=== PATIENT | male | born 1970 | race Caucasian/White ===

== ENCOUNTER 2016-08-16 07:19 | Emergency (ER) | payer BC ==
[2016-08-16] MEDS ORDERED: SULFAMETHOXAZOLE/TRIMETHOPRIM 800-160 MG TABLET PO ONE (07:58)
--- NOTE | 2016-08-16 08:02 | ER Document Report ---
ED General - General Chief Complaint: Abscess Stated Complaint: POSSIBLE SPIDER BITE TRAVEL OUTSIDE OF THE [place] IN LAST 30 DAYS: No - HPI Patient complains to provider of: Chin abscess Notes: Patient coming in with a abscess on his chin states he noticed erythema possible infected hair proximal one week ago however does increase in size made the patient coming to the ER today for further evaluation. Patient denies any trouble swallowing has any fevers chills nausea vomiting. - Related Data Allergies/Adverse Reactions: Animal Dander Allergy (Severe, Uncoded 08/16/16 07:59) Sinus problems, SOB Environmental Allergy (Severe, Uncoded 08/16/16 07:59) SOB, Sinus problems Past Medical History - Social History Smoking Status: Never Smoker Frequency of alcohol use: None Drug Abuse: None Family History: Reviewed & Not Pertinent Patient has suicidal ideation: No Patient has homicidal ideation: No - Past Medical History Cardiac Medical History: Reports: Hx Hypertension - MEDICATED Denies: Hx Coronary Artery Disease, Hx Heart Attack Pulmonary Medical History: Denies: Hx Asthma, Hx Bronchitis, Hx COPD, Hx Pneumonia Neurological Medical History: Denies: Hx Cerebrovascular Accident, Hx Seizures GI Medical History: Denies: Hx Hepatitis, Hx Hiatal Hernia, Hx Ulcer Musculoskeltal Medical History: Reports Hx Arthritis - on meds,burstis Psychiatric Medical History: Reports: Hx Bipolar Disorder, Hx Depression, Hx Schizophrenia Infectious Medical History: Denies: Hx Hepatitis Past Surgical History: Reports: Hx Orthopedic Surgery - Carpal tunnel. Denies: Hx Open Heart Surgery, Hx Pacemaker - Immunizations Immunizations up to date: Yes Hx Diphtheria, Pertussis, Tetanus Vaccination: Yes Review of Systems - Review of Systems Constitutional: No symptoms reported EENT: Other - Chin abscess Cardiovascular: No symptoms reported Respiratory: No symptoms reported Gastrointestinal: No symptoms reported Genitourinary: No symptoms reported Male Genitourinary: No symptoms reported Musculoskeletal: No symptoms reported Skin: No symptoms reported Hematologic/Lymphatic: No symptoms reported Neurological/Psychological: No symptoms reported Physical Exam - Vital signs Vitals: Temp Pulse Resp BP Pulse Ox 98.0 F 93 20 120/83 100 08/16/16 07:26 08/16/16 07:26 08/16/16 07:26 08/16/16 07:26 08/16/16 07:26 Interpretation: Normal - General General appearance: Appears well, Alert - HEENT Head: Normocephalic, Atraumatic, Other - Patient has a goatee with an area of erythema on his chin approximately 2 cm with 2 cm with a center area of fluctuance consistent with abscess formation. There is no changes underneath the chin no signs of lugwings no signs of severe infection no signs Eyes: Normal Pupils: PERRL Neck: Normal - Respiratory Respiratory status: No respiratory distress Chest status: Nontender Breath sounds: Normal Chest palpation: Normal - Cardiovascular Rhythm: Regular Heart sounds: Normal auscultation Murmur: No - Abdominal Inspection: Normal Distension: No distension Bowel sounds: Normal Tenderness: Nontender Organomegaly: No organomegaly - Back Back: Normal, Nontender - Extremities General upper extremity: Normal inspection, Nontender, Normal color, Normal ROM , Normal temperature General lower extremity: Normal inspection, Nontender, Normal color, Normal ROM , Normal temperature, Normal weight bearing. No: Lauren's sign - Neurological Neuro grossly intact: Yes Cognition: Normal Orientation: AAOx4 Verónica Coma Scale Eye Opening: Spontaneous Verónica Coma Scale Verbal: Oriented Verónica Coma Scale Motor: Obeys Commands Verónica Coma Scale Total: 15 Speech: Normal Motor strength normal: LUE, RUE, LLE, RLE Sensory: Normal - Psychological Associated symptoms: Normal affect, Normal mood - Skin Skin Temperature: Warm Skin Moisture: Dry Skin Color: Normal Course - Re-evaluation Re-evalutation: 08/16/16 15:45 I and D performed patient tolerated well is discharged home antibiotics follow- up with PCP. - Vital Signs Vital signs: Temp Pulse Resp BP Pulse Ox 98.3 F 92 16 125/82 96 08/16/16 08:26 08/16/16 08:26 08/16/16 08:26 08/16/16 08:26 08/16/16 08:26 Procedures - Incision and Drainage Face Type: Simple Anesthetic type: 1% Lidocaine mL's of anesthetic: 1 Blade size: 11 I&D procedure: Betadine prep applied Incision Method: Incision made by scalpel Amount/type of drainage: 2 cc puss Notes: 08/16/16 15:45 Probed for loculations irrigated to clear Discharge - Discharge Clinical Impression: Cutaneous abscess of face Condition: Good Disposition: HOME, SELF-CARE Instructions: Post Incision and Drainage, Trimethoprim-Sulfa ([facility]), Abscess ( [facility]) Additional Instructions: Take medication as prescribed. Return to the ER symptoms worsen. Prescriptions: Sulfamethoxazole/Trimethoprim [Bactrim Ds Tablet] 1 each PO BID #20 tablet Forms: Return to Work
[2016-08-16 08:28] VITALS: BP 125/82
== END 2016-08-16 08:26 | disposition home or self-care (01) ==
LOC: ER 07:19
PROC: 0H91XZZ Drainage of Face Skin, External Approach (ICD-10-PCS; principal; 2016-08-16)
DX: L02.01 Cutaneous abscess of face (principal); I10 Essential (primary) hypertension
CPT/HCPCS: 87070; 87077; 87186; 87205; 99283

== ENCOUNTER 2017-09-22 10:47 | Inpatient (IN) | payer BC ==
[2017-09-22] MEDS: NORMAL SALINE 1000 ML 1,000 ML IV PRN ×2 (11:14→11:39)
[2017-09-22 11:20] LABS: ABSOLUTE BASOPHILS # (AUTO) 0.1 10^3/uL (0.0-0.2); ABSOLUTE EOSINOPHILS # (AUTO) 0.3 10^3/uL (0.0-0.6); ABSOLUTE NEUT (AUTO) 9.2 10^3/uL (1.7-8.2); BASOPHILS % (AUTO) 0.6 % (0-2); EOSINOPHILS % (AUTO) 2.5 % (0-6); HEMATOCRIT 38.7 % (37.9-51.0); HEMOGLOBIN 13.4 g/dL (13.5-17.0); LYMPHOCYTES % (AUTO) 16.2 % (13-45); MEAN CORPUSCULAR HGB CONC 34.6 g/dL (32.0-36.0); MEAN CORPUSCULAR VOLUME 95 fl (80-97); MONOCYTES % (AUTO) 7.6 % (3-13); PLATELET COUNT 245 10^3/uL (150-450); RED BLOOD COUNT 4.06 10^6/uL (4.35-5.55); SEGMENTED NEUTROPHILS % (AUTO) 73.1 % (42-78); TOTAL CELLS COUNTED % (AUTO) 100 %; WHITE BLOOD COUNT 12.6 10^3/uL (4.0-10.5)
--- NOTE | 2017-09-22 11:21 | ER Document Report ---
ED General - General Chief Complaint: Altered Mental Status Stated Complaint: ALTERED MENTAL STATUS Time Seen by Provider: 09/22/17 10:52 Notes: Patient was found laying on the garage floor by his family members this morning. They called EMS. Patient was noted to be altered and not able to answer all questions correctly. His blood pressure was 90/60. Patient does not know why he was in the garage for what he was doing this morning. He is disoriented to date or year, although he knows he is at [facility]. Patient does not show any evidence of any injuries. Denies any pains. His medication list shows several medications for anxiety and depression and he says he also has bipolar disorder and schizophrenia. Patient says he controls his medications. told EMS that patient recently had a change in his gabapentin medication and ever since then he has had a random twitching and been less active. Patient says he has had occasional chest pains. No difficulty breathing or shortness of breath. Denies UTI symptoms. Denies nausea or vomiting or diarrhea. Has not recently had any illnesses and fevers. Current psychiatric medications include Risperdal, Topamax, lithium 600 mg twice a day, and gabapentin 1200 mg 3 times a day. TRAVEL OUTSIDE OF THE [place] IN LAST 30 DAYS: No - Related Data Allergies/Adverse Reactions: Animal Dander Allergy (Severe, Uncoded 08/16/16 07:59) Sinus problems, SOB Environmental Allergy (Severe, Uncoded 08/16/16 07:59) SOB, Sinus problems Past Medical History - Social History Smoking Status: Unknown if Ever Smoked Cigarette use (# per day): No Family History: Reviewed & Not Pertinent - Past Medical History Cardiac Medical History: Reports: Hx Hypertension - MEDICATED Neurological Medical History: Denies: Hx Cerebrovascular Accident, Hx Seizures Endocrine Medical History: Denies: Hx Diabetes Mellitus Type 1, Hx Diabetes Mellitus Type 2 GI Medical History: Reports: Hx Gastroesophageal Reflux Disease Musculoskeltal Medical History: Reports Hx Arthritis - on meds,burstis Psychiatric Medical History: Reports: Hx Bipolar Disorder, Hx Depression, Hx Schizophrenia Past Surgical History: Reports: Hx Orthopedic Surgery - Carpal tunnel - Immunizations Immunizations up to date: Yes Hx Diphtheria, Pertussis, Tetanus Vaccination: Yes Review of Systems - Review of Systems Notes: REVIEW OF SYSTEMS: CONSTITUTIONAL : Denies fever. EENT: Denies eye, ear, nose or mouth or throat pain or other symptoms. CARDIOVASCULAR: Has had some chest pains recently, but not today. RESPIRATORY: Denies cough, chest congestion, or shortness of breath. GASTROINTESTINAL: Denies abdominal pain or nausea, vomiting, or diarrhea. GENITOURINARY: Denies difficulty or painful urinating, urinary frequency, blood in urine. MUSCULOSKELETAL: Denies back or neck pain. Denies joint pain or swelling. SKIN: Denies rash or skin lesions. NEUROLOGICAL: Denies headache. Denies sensory loss or motor deficits. Does not know what the date is or what year it is, but knows he is at [facility]. ALL OTHER SYSTEMS REVIEWED AND NEGATIVE. Physical Exam - Vital signs Vitals: Resp 22 H 09/22/17 10:51 Interpretation: Hypotensive - 90/60 initially by EMS. - Notes Notes: PHYSICAL EXAMINATION: GENERAL: Well-appearing, in no acute distress. Blood pressure slightly low. Patient seems sleepy but can be awakened with a loud voice or touching. Answers most questions appropriately, although he is not oriented to time and date. No evidence of any trauma. HEAD: Atraumatic, normocephalic. EYES: Pupils equal round and reactive to light, extraocular movements intact. NECK: Normal range of motion, supple. No carotid bruits heard LUNGS: Breath sounds clear and equal bilaterally. HEART: Regular rate and rhythm without murmurs. ABDOMEN: Soft, nontender. No guarding or rebound. No masses. BACK: No tenderness throughout entire back. EXTREMITIES: Normal range of motion without pain. NEUROLOGICAL: Speech is slow, but not slurred. Patient can stand at the bedside by himself and take a few steps and turn around and back to the stretcher without assistance. Normal sensory, motor, and reflex exams. Awake, alert, and oriented x2 (person and place). Patient has a random twitch in which his entire body jerks slightly occurring at 10 to 20 second intervals. PSYCH: Normal mood, normal affect. SKIN: Warm, dry, no rashes. Course - Re-evaluation Re-evalutation: 09/22/17 13:41 Patient has been hydrated with 2 L of saline and is now getting his third liter of saline. Toxic level of lithium noted. Discussed with hospitalist who will be admitting the patient to [facility] for further hydration and cardiac monitoring. 09/22/17 14:55 Patient's drug screen came back and it is positive for cocaine, marijuana, and possible amphetamines. - Vital Signs Vital signs: Temp Pulse Resp BP Pulse Ox 98.4 F 16 101/68 97 09/22/17 10:53 09/22/17 14:31 09/22/17 14:31 09/22/17 14:31 - Laboratory Result Diagrams: 09/22/17 10:20 09/22/17 10:20 Laboratory results interpreted by me: 09/22/17 09/22/17 09/22/17 10:20 10:20 13:30 WBC 12.6 H RBC 4.06 L Hgb 13.4 L Absolute Neutrophils 9.2 H Sodium 135.2 L Potassium 3.4 L Creatinine 1.93 H Est GFR ( Amer) 46 L Est GFR (Non-Af Amer) 38 L Glucose 138 H Direct Bilirubin 0.5 H Ur Leukocyte Esterase SMALL H Salicylates < 1.0 L Acetaminophen < 10 L [place] 2.8 H* - Diagnostic Test Radiology reviewed: Image reviewed, Reports reviewed - CT scan is normal. Radiology results interpreted by me: 09/22/17 13:36 Chest x-ray is normal. - EKG Interpretation by [place] EKG shows normal: Sinus rhythm Rate: Normal Rhythm: NSR [place]/QRS: IVCD When compared to previous EKG there are: Changes noted - Prolonged QT Additional EKG results interpreted by me: 09/22/17 13:39 Patient's QTC is 538. Critical Care Note - Critical Care Note Total time excluding time spent on procedures (mins): 40 Discharge - Discharge Clinical Impression: Altered mental status, [place] toxicity Condition: Stable Disposition: ADMITTED INPATIENT Admitting Provider: Hospitalist Unit Admitted: [facility]
[2017-09-22 11:38] LABS: ACETAMINOPHEN < 10 ug/mL (10-30); ALANINE AMINOTRANSFERASE 70 U/L (21-72); ALBUMIN 4.2 g/dL (3.5-5.0); ALCOHOL < 10 mg/dL (NONE DETECTED); ALKALINE PHOSPHATASE 87 U/L (38-126); ANION GAP 12 (5-19); ASPARTATE AMINO TRANSFERASE 38 U/L (17-59); BILIRUBIN,DIRECT 0.5 mg/dL (0.0-0.4); BILIRUBIN,TOTAL 0.7 mg/dL (0.2-1.3); BLOOD UREA NITROGEN 18 mg/dL (7-20); CALCIUM 9.7 mg/dL (8.4-10.2); CARBON DIOXIDE 23 mmol/L (22-30); CHLORIDE 100 mmol/L (98-107); GLUCOSE 138 mg/dL (75-110); POTASSIUM 3.4 mmol/L (3.6-5.0); SALICYLATE < 1.0 mg/dL (2.0-20.0); SODIUM 135.2 mmol/L (137-145)
--- NOTE | 2017-09-22 11:41 | RADIOLOGY REPORT (SQ) ---
EXAM DESCRIPTION: CT HEAD WITHOUT COMPLETED DATE/TIME: 09/22/2017 11:28 am REASON FOR STUDY: Altered mental status COMPARISON: None. TECHNIQUE: Axial images acquired through the brain without intravenous contrast. Images reviewed wi th bone, brain and subdural windows. Images stored on PACS. All CT scanners at this facility use dose modulation, iterative reconstruction, and/or weight based d osing when appropriate to reduce radiation dose to as low as reasonably achievable (ALARA). [facility]: Dose Right [facility]: CareDose [facility]: Dose Right [facility]: Teradose 4D [facility]: [employer] RADIATION DOSE: CT Rad equipment meets quality standard of care and radiation dose reduction techniq ues were employed. CTDIvol: 64.6 mGy. DLP: 1163 mGy-cm. mGy. LIMITATIONS: None. FINDINGS: VENTRICLES: Normal size and contour. CEREBRUM: No masses. No hemorrhage. No midline shift. No evidence for acute infarction. Normal gra y/white matter differentiation. No areas of low density in the white matter. CEREBELLUM: No masses. No hemorrhage. No alteration of density. No evidence for acute infarction. EXTRAAXIAL SPACES: No fluid collections. No masses. ORBITS AND GLOBE: No intra- or extraconal masses. Normal contour of globe without masses. CALVARIUM: No fracture. PARANASAL SINUSES: No fluid or mucosal thickening. SOFT TISSUES: No mass or hematoma. OTHER: No other significant finding. IMPRESSION: NORMAL BRAIN CT WITHOUT CONTRAST. EVIDENCE OF ACUTE STROKE: NO. COMMENT: Quality ID # [id number]: Final reports with documentation of one or more dose reduction techniques (e.g., Automated exposure control, adjustment of the mA and/or kV according to patient size, use of iterative reconstruction technique) TECHNICAL DOCUMENTATION: JOB ID: [id number] [employer]- All Rights Reserved
[2017-09-22 11:46] LABS: LITHIUM 2.8 mEq/L (0.6-1.2)
--- NOTE | 2017-09-22 12:02 | RADIOLOGY REPORT (SQ) ---
EXAM DESCRIPTION: CHEST PA/LAT COMPLETED DATE/TIME: 09/22/2017 11:44 am REASON FOR STUDY: Altered mental status,? Fall COMPARISON: 05/23/2015. EXAM PARAMETERS: NUMBER OF VIEWS: two views TECHNIQUE: Digital Frontal and Lateral radiographic views of the chest acquired. RADIATION DOSE: NA LIMITATIONS: none FINDINGS: LUNGS AND PLEURA: No opacities, masses or pneumothorax. No pleural effusion. MEDIASTINUM AND HILAR STRUCTURES: No masses or contour abnormalities. HEART AND VASCULAR STRUCTURES: Heart normal size. No evidence for failure. BONES: No acute findings. HARDWARE: None in the chest. OTHER: No other significant finding. IMPRESSION: NO SIGNIFICANT RADIOGRAPHIC FINDING IN THE CHEST. TECHNICAL DOCUMENTATION: JOB ID: [id number] [employer]- All Rights Reserved
--- NOTE | 2017-09-22 12:40 | PSYCHOLOGICAL NOTE ---
Psych Note - Psych Note Psych Note: Reason for consult: Drug Overdose Consents given: Jennifer Valdes, , at bedside Patient brought to the Emergency Department after being found unconscious on garage floor. Patient was not found with empty pill bottles or indications he had taken any medications. Patient and denied the patient had attempted to commit suicide. Toxicology reports showed the patient has a [place] level of 2.8 (normal levels per EMR are identified as 0.6 to 1.2). Patient stated he may have taken too much of his medication or mixed up his medications. Patient denied any additional stressors in his life or any additional depressive episodes. Patient appears lethargic and has a difficult time staying awake during evaluation. Patient's stated he may smoke marijuana occasionally but is not using anything else. Patient denied meth use or use of any drugs besides his prescriptions and marijuana. Patient reported he has memory issues sometimes. Patient's stated he receives ECT treatment at [facility]. Explored patient's taking over dispensation of patient's medications if this is a result of a medication error. The patient's stated she works too many hours to be in charge of all of his medications and the multiple times a day he has to take them. Patient stated he keeps his medications in order but possible messed up his dosage on the [place]. The stated she and her 17 year old daughter who also lives in the home give him reminders to take his medications. Patient is observed to have uncontrollable twitching in his extremities. Physician noted this may be a result of the [place] toxicity. Patient and reported he has multiple diagnoses to include PTSD, Schizophrenia and Bipolar Disorder. Patient takes Marinol, [place] , Risperidone, and Topamax for psychiatric disorders as well as medications for pain, high blood pressure, nerve pain and back pain. Patient was somewhat alert and oriented but had a difficult time staying awake for assessment. Mood was euthymic with congruent affect. Patient denied suicidal /homicidal ideation, intent or plan. He did not appear to be responding to internal stimuli as evidenced by appropriate eye contact, maintaining conversation-when he was able to stay awake-and staying on topic. No delusions or psychosis noted. Thought processes were organized and linear. Conversational speech was slow for rate, tone and prosody subsequent to his physical lethargy. Intellectual abilities were estimated in the average range. Insight, judgment and impulse control were fair. 1. 309.81 (F43.10) Post Traumatic Stress Disorder, by patient report 2. 295.90 (F20.9) Schizophrenia, by patient report 3. 296.80 (F31.9) Unspecified Bipolar and Related Disorder, by patient report Impression/Plan: Patient is psychiatrically clear. He does not meet [place] G.S 122C IVC criteria. Patient denied suicidal/homicidal ideation, intent or plan. He stated that his current presentation is solely due to a medication error and he is not depressed or wanting to harm himself. Patient's corroborates his explanation and has seen no signs of the patient being overtly depressed or suicidal. Consulted with Dr. Bridges regarding the care and management of this patient. ED physician in agreement with recommendation and disposition.
[2017-09-22] MEDS ORDERED: ONDANSETRON HCL INJ/PF 4 MG/2 ML SDV IV PRN (13:45)
[2017-09-22] MEDS ORDERED: ACETAMINOPHEN 325 MG TABLET PO PRN (13:45)
[2017-09-22] MEDS ORDERED: POTASSI CL 20 MEQ/NS 1L 1,000 ML IV PRN ×2 (13:45→18:29)
[2017-09-22 14:03] LABS: APPEARANCE,URINE SLIGHTLY-CLOUDY; BILIRUBIN,URINE NEGATIVE (NEGATIVE); COLOR,URINE YELLOW; GLUCOSE, URINE NEGATIVE (NEGATIVE); KETONES,URINE NEGATIVE (NEGATIVE); LEUKOCYTE ESTERASE,URINE SMALL (NEGATIVE); NITRITE,URINE NEGATIVE (NEGATIVE); PROTEIN,URINE NEGATIVE (NEGATIVE); URINE SPECIFIC GRAVITY 1.015; UROBILINOGEN,URINE NEGATIVE mg/dL (<2.0)
[2017-09-22 14:12] LABS: URINE BARBITURATES SCREEN NEGATIVE; URINE BENZODIAZEPINES SCREEN NEGATIVE; URINE METHADONE SCREEN NEGATIVE; URINE PHENCYCLIDINE SCREEN NEGATIVE
[2017-09-22 14:28] LABS: URINE COCAINE SCREEN UNCONFIRMED POSITIVE; URINE MARIJUANA (THC) SCREEN UNCONFIRMED POSITIVE
[2017-09-22] MEDS: OXYCODONE-ACETAMINOPHEN 5-325 MG TABLET PO PRN (14:30)
[2017-09-22] MEDS: HEPARIN SOD (PORCINE) 5,000 UNIT/ML 1 ML SYRINGE SUBCUT SCH (14:31)
[2017-09-22] MEDS ORDERED: POTASSIUM CHLORIDE 10 MEQ TABLET.SA PO ONE (15:50)
[2017-09-22] MEDS ORDERED: FUROSEMIDE INJ/PF 20 MG/2 ML SDV IV ONE (15:50)
[2017-09-22] MEDS ORDERED: TAMSULOSIN HCL 0.4 MG CAP.SR.24H PO ONE (15:51)
[2017-09-22] MEDS ORDERED: DRONABINOL 10 MG PO SCH ×2 (16:00→18:00)
--- NOTE | 2017-09-22 16:20 | PDOC H&P ---
History of Present Illness Admission Date/PCP: 09/22/17 13:45 CHARLENE DENNY NP Patient complains of: Was found unconscious in the garage History of Present Illness: DEANA SHARP is a 47 year old male was brought to the Emergency Department after being found unconscious on garage floor by his daughter. Patient was not found with empty pill bottles or indications he had taken any medications. Patient and denied the patient had attempted to commit suicide. Patient stated that he thinks that he took more medications than usual primarily lithium. His medications have been recently adjusted by his psychiatrist. Also pain management had been trying to regulate gabapentin. complained of patient having some twitches which she thinks relate to his medications.Toxicology reports showed the patient has a [place] level of 2.8. Patient denied any additional stressors in his life or any additional depressive episodes. Patient's stated he may smoke marijuana occasionally but is not using anything else. Patient denied meth use or use of any drugs besides his prescriptions and marijuana. Patient reported he has memory issues sometimes. Patient's stated he receives ECT treatment at [facility]. Patient and reported he has multiple diagnoses to include PTSD, Schizophrenia and Bipolar Disorder. Patient takes Marinol, [place] , Risperidone, and Topamax for psychiatric disorders as well as medications for pain, high blood pressure, nerve pain and back pain. Due to elevated lithium and mental status changes the hospitalist service was contacted for further management. It is noteworthy to mention that while in emergency room care render included administration of 3 L of normal saline. Poison control has not been contacted since ED physician claimed 40 years of experience and having taking care of similar scenarios in the past. Past Medical History Cardiac Medical History: Reports: Hypertension - MEDICATED EENT Medical History: Reports: None Neurological Medical History: Reports: None Denies: Seizures Endocrine Medical History: Denies: Diabetes Mellitus Type 1, Diabetes Mellitus Type 2 Renal/ Medical History: Reports: None Malignancy Medical History: Reports: None GI Medical History: Reports: Gastroesophageal Reflux Disease Musculoskeltal Medical History: Reports: Arthritis - on meds,burstis Skin Medical History: Reports: None Psychiatric Medical History: Reports: Bipolar Disorder, Depression, Post Traumatic Stress Disorder Traumatic Medical History: Reports: None Hematology: Denies: Anemia, Sickle Cell Disease Infectious Medical History: Reports: None Past Surgical History Past Surgical History: Reports: Orthopedic Surgery - Carpal tunnel Social History Smoking Status: Unknown if Ever Smoked Frequency of Alcohol Use: None Hx Recreational Drug Use: No Drugs: Marijuana Hx Prescription Drug Abuse: No - Advance Directive Resuscitation Status: Full Code Family History Family History: Hypertension Parental Family History Reviewed: Yes Children Family History Reviewed: Yes Sibling(s) Family History Reviewed.: Yes Medication/Allergy Home Medications: Albuterol Sulfate [Ventolin Hfa] 2 puff IH Q6HP PRN 09/22/17 Alprazolam [Xanax] 2 mg PO BIDP PRN 09/22/17 Bupropion HCl [Wellbutrin Sr 150 mg Tablet] 150 mg PO TID 09/22/17 Cetirizine HCl [Zyrtec 10 mg Tablet] 10 mg PO DAILYP PRN 09/22/17 Cyclobenzaprine HCl [Flexeril 10 mg Tablet] 10 mg PO WSUPPER 09/22/17 Dextroamphetamine/Amphetamine [Adderall 30 mg Tablet] 30 mg PO WBRKFST 09/22/17 Dronabinol [Marinol] 10 mg PO BID 09/22/17 Fluticasone Propionate [Flonase Nasal [place] 50 Mcg/[place] 16 gm] 1 spray NASL QPMP PRN 09/22/17 Gabapentin [Neurontin] 1,200 mg PO TID 09/22/17 Ibuprofen [Motrin 800 mg Tablet] 800 mg PO Q6HP PRN 09/22/17 Lisinopril/Hydrochlorothiazide [Zestoretic 20-25 mg Tablet] 1 tab PO WSUPPER 06/29 [place] Carbonate 600 mg PO BID 09/22/17 Meloxicam [Mobic] 15 mg PO QAM 09/22/17 Pantoprazole Sodium [Protonix] 40 mg PO DAILY 09/22/17 Risperidone [Risperdal] 2 mg PO BID 09/22/17 Topiramate [Topamax] 200 mg PO BID 09/22/17 Triamcinolone Acetonide [Aristocort 0.1% Cream] 1 applic TP QPM 09/22/17 Allergies/Adverse Reactions: Animal Dander Allergy (Severe, Uncoded 08/16/16 07:59) Sinus problems, SOB Environmental Allergy (Severe, Uncoded 08/16/16 07:59) SOB, Sinus problems Review of Systems Constitutional: ABSENT: fever(s), headache(s), night sweats, weakness Eyes: ABSENT: visual disturbances Ears: ABSENT: hearing changes Nose, Mouth, and Throat: ABSENT: headache(s), mouth pain, sore throat Cardiovascular: ABSENT: chest pain, edema Respiratory: ABSENT: cough Gastrointestinal: ABSENT: diarrhea Genitourinary: ABSENT: dysuria, hematuria Musculoskeletal: ABSENT: muscle weakness Neurological: PRESENT: abnormal movements. ABSENT: frequent falls Psychiatric: PRESENT: depression. ABSENT: suicidal ideation Endocrine: ABSENT: heat intolerance, polyphagia, polyuria Physical Exam Vital Signs: Temp Pulse Resp BP Pulse Ox 98.4 F 16 106/57 L 98 09/22/17 10:53 09/22/17 15:47 09/22/17 15:47 09/22/17 15:47 General appearance: PRESENT: no acute distress, cooperative, morbidly obese Head exam: PRESENT: atraumatic, normocephalic Eye exam: PRESENT: conjunctiva pink, EOMI, PERRLA Ear exam: PRESENT: normal external ear exam, TM's normal bilaterally Mouth exam: PRESENT: moist Neck exam: PRESENT: full ROM. ABSENT: JVD, lymphadenopathy, tenderness, thyromegaly Respiratory exam: PRESENT: clear to auscultation trupti Cardiovascular exam: PRESENT: RRR. ABSENT: diastolic murmur, systolic murmur Vascular exam: PRESENT: normal capillary refill GI/Abdominal exam: PRESENT: distended, normal bowel sounds, soft. ABSENT: tenderness Extremities exam: PRESENT: full ROM, +1 edema Musculoskeletal exam: PRESENT: ambulatory Neurological exam: PRESENT: alert, awake, oriented to person, oriented to place , oriented to time, other - Sedated Intermittent twitches noted Skin exam: PRESENT: intact, normal color Results Impressions: Chest X-Ray 09/22/17 11:07 IMPRESSION: NO SIGNIFICANT RADIOGRAPHIC FINDING IN THE CHEST. Head CT 09/22/17 11:09 IMPRESSION: NORMAL BRAIN CT WITHOUT CONTRAST. EVIDENCE OF ACUTE STROKE: NO. Assessment & Plan - Diagnosis (1) Encephalopathy acute Is this a current diagnosis for this admission?: Yes Plan: Appears to be due to acute ingestion of multiple medications that can cause sedation. To monitor (2) [place] toxicity Qualifiers: Encounter type: initial encounter Is this a current diagnosis for this admission?: Yes Plan: Will continue hydrating. Patient will be placed on telemetry unit and will repeat level in a.m. Will replete all electrolyte abnormalities. Will request a TSH level (3) Hyponatremia Is this a current diagnosis for this admission?: Yes Plan: Likely due to HCTZ. Will hold off this medication and will gently hydrate and trend (4) Hypokalemia Is this a current diagnosis for this admission?: Yes Plan: Replace orally and through IV. To trend (5) Chronic pain syndrome Is this a current diagnosis for this admission?: Yes Plan: Will hold off outpatient medicines since appears to be sedated (6) Bipolar 1 disorder, depressed Is this a current diagnosis for this admission?: Yes Plan: Will hold of medication due to twitching and sedation (7) Muscle twitch Is this a current diagnosis for this admission?: Yes Plan: Will try Cogentin - Time Time Spent: 50 to 70 Minutes Medications reviewed and adjusted accordingly: Yes Anticipated discharge: Home Within: within 48 hours - Inpatient Certification Based on my medical assessment, after consideration of the patient's comorbidities, presenting symptoms, or acuity I expect that the services needed warrant INPATIENT care.: Yes I certify that my determination is in accordance with my understanding of Medicare's requirements for reasonable and necessary INPATIENT services [42 CFR 412.3e].: Yes Medical Necessity: Need Close Monitoring Due to Risk of Patient Decompensation, Need For IV Fluids, Need For Continuous Telemetry Monitoring
[2017-09-22] MEDS ORDERED: ALPRAZOLAM 0.5 MG TABLET PO PRN (17:00)
[2017-09-22] MEDS ORDERED: LISINOPRIL 10 MG TABLET PO SCH (18:00)
[2017-09-22] MEDS ORDERED: AMLODIPINE BESYLATE 5 MG TABLET PO SCH (18:00)
[2017-09-22] MEDS ORDERED: (PENDING PHARMACY ID) (Bupropion Hcl [Wellbutrin Sr 150 Mg Tablet] 150 MG) PO SCH (18:00)
[2017-09-22] MEDS ORDERED: FLUTICASONE NASAL SPRAY 50 MCG/SPRY 120 SPRAY/16 GM NASL PRN (18:00)
[2017-09-22 19:20] LABS: ANION GAP 10 (5-19); BLOOD UREA NITROGEN 18 mg/dL (7-20); CALCIUM 8.6 mg/dL (8.4-10.2); CARBON DIOXIDE 24 mmol/L (22-30); CHLORIDE 104 mmol/L (98-107); GLUCOSE 77 mg/dL (75-110); POTASSIUM 3.7 mmol/L (3.6-5.0)
[2017-09-22 19:32] LABS: LITHIUM 2.9 mEq/L (0.6-1.2)
--- NOTE | 2017-09-22 20:44 | EKG REPORT ---
SEVERITY:- ABNORMAL ECG - SINUS RHYTHM VENTRICULAR PREMATURE COMPLEX VS ARTIFACT NONSPECIFIC INTRAVENTRICULAR CONDUCTION DELAY : Confirmed by: Doris Ray 22-Sep-2017 20:43:33
[2017-09-22 22:20] LABS: ANION GAP 10 (5-19); BLOOD UREA NITROGEN 17 mg/dL (7-20); CALCIUM 9.2 mg/dL (8.4-10.2); CARBON DIOXIDE 22 mmol/L (22-30); CHLORIDE 106 mmol/L (98-107); GLUCOSE 139 mg/dL (75-110); POTASSIUM 3.7 mmol/L (3.6-5.0); SODIUM 137.7 mmol/L (137-145)
[2017-09-22 22:45] LABS: LITHIUM 2.9 mEq/L (0.6-1.2)
[2017-09-23] MEDS: BENZTROPINE MESYLATE 1 MG TABLET PO SCH ×2 (00:39→22:22)
[2017-09-23] MEDS: ZOLPIDEM TARTRATE 5 MG TABLET PO PRN ×2 (00:39→22:29)
[2017-09-23] MEDS: NORMAL SALINE 1000 ML 1,000 ML IV PRN ×3 (00:40→22:30)
[2017-09-23] MEDS: HEPARIN SOD (PORCINE) 5,000 UNIT/ML 1 ML SYRINGE SUBCUT SCH ×4 (00:45→22:23)
[2017-09-23] MEDS ORDERED: BUPROPION HCL 75 MG TABLET ONE (00:58)
[2017-09-23] MEDS: BUPROPION HCL 75 MG TABLET PO SCH ×4 (01:42→22:21)
[2017-09-23 05:22] LABS: ABSOLUTE EOSINOPHILS # (AUTO) 0.4 10^3/uL (0.0-0.6); ABSOLUTE LYMPHOCYTES (AUTO) 1.9 10^3/uL (0.5-4.7); ABSOLUTE MONOCYTES (AUTO) 0.9 10^3/uL (0.1-1.4); ABSOLUTE NEUT (AUTO) 7.6 10^3/uL (1.7-8.2); BASOPHILS % (AUTO) 0.3 % (0-2); EOSINOPHILS % (AUTO) 3.4 % (0-6); HEMATOCRIT 34.8 % (37.9-51.0); HEMOGLOBIN 12.1 g/dL (13.5-17.0); LYMPHOCYTES % (AUTO) 17.7 % (13-45); MEAN CORPUSCULAR HEMOGLOBIN 33.2 pg (27.0-33.4); MEAN CORPUSCULAR HGB CONC 34.7 g/dL (32.0-36.0); MEAN CORPUSCULAR VOLUME 96 fl (80-97); MONOCYTES % (AUTO) 8.6 % (3-13); PLATELET COUNT 206 10^3/uL (150-450); RED BLOOD COUNT 3.64 10^6/uL (4.35-5.55); TOTAL CELLS COUNTED % (AUTO) 100 %; WHITE BLOOD COUNT 10.9 10^3/uL (4.0-10.5)
[2017-09-23 05:52] LABS: ANION GAP 9 (5-19); BLOOD UREA NITROGEN 16 mg/dL (7-20); CALCIUM 9.3 mg/dL (8.4-10.2); CARBON DIOXIDE 24 mmol/L (22-30); CHLORIDE 109 mmol/L (98-107); GLUCOSE 107 mg/dL (75-110); PHOSPHORUS 1.8 mg/dL (2.5-4.5); POTASSIUM 3.8 mmol/L (3.6-5.0); SODIUM 142.3 mmol/L (137-145)
[2017-09-23] MEDS: LANSOPRAZOLE 30 MG TAB.RAP.DR PO SCH (06:22)
[2017-09-23] MEDS: OXYCODONE-ACETAMINOPHEN 5-325 MG TABLET PO PRN ×2 (06:30→22:29)
[2017-09-23 06:56] LABS: LITHIUM 2.3 mEq/L (0.6-1.2)
[2017-09-23] MEDS ORDERED: LEVOTHYROXINE SODIUM 0.05 MG TABLET PO ONE ×2 (07:30→10:00)
[2017-09-23] MEDS ORDERED: (PENDING PHARMACY ID) (Dextroamphetamine/Amphetamine [Adderall 30 Mg Tablet] 30 MG) PO SCH (08:00)
--- NOTE | 2017-09-23 10:44 | PDOC PROGRESS REPORT ---
Subjective Progress Note for:: 09/23/17 Subjective:: Patient refers that feels better. He denies doing any cocaine but occasional marijuana. Patient states that the tremors are better Review of systems All organ systems evaluated and negative except as in subjective All significant laboratories and diagnostics have been reviewed Reason For Visit: LITHIUM TOXICITY/HYPOKALEMIA Physical Exam Vital Signs: Temp Pulse Resp BP Pulse Ox 98.4 F 22 H 120/71 95 09/22/17 10:53 09/23/17 06:00 09/23/17 05:01 09/23/17 06:00 Intake & Output 09/22/17 09/23/17 09/24/17 06:59 06:59 06:59 Output Total 2240 Balance -2240 General appearance: PRESENT: cooperative, morbidly obese Head exam: PRESENT: atraumatic, normocephalic Eye exam: PRESENT: conjunctiva pink, EOMI, PERRLA Ear exam: PRESENT: normal external ear exam, TM's normal bilaterally Mouth exam: PRESENT: moist Neck exam: PRESENT: full ROM. ABSENT: JVD, lymphadenopathy, tenderness Respiratory exam: PRESENT: clear to auscultation trupti Cardiovascular exam: PRESENT: RRR. ABSENT: diastolic murmur, systolic murmur Vascular exam: PRESENT: normal capillary refill GI/Abdominal exam: PRESENT: normal bowel sounds, soft. ABSENT: tenderness Extremities exam: PRESENT: full ROM. ABSENT: pedal edema Musculoskeletal exam: PRESENT: ambulatory. ABSENT: deformity Neurological exam: PRESENT: alert, awake, oriented to person, oriented to place , oriented to time, oriented to situation, CN II-XII grossly intact Psychiatric exam: PRESENT: appropriate affect, normal mood Skin exam: PRESENT: intact, normal color Results Laboratory Results: 09/23/17 05:05 09/23/17 05:05 09/22/17 09/22/17 09/23/17 18:20 21:55 05:05 WBC RBC Hgb Hct MCV MCH MCHC RDW Plt Count Seg Neutrophils % Lymphocytes % Monocytes % Eosinophils % Basophils % Absolute Neutrophils Absolute Lymphocytes Absolute Monocytes Absolute Eosinophils Absolute Basophils Sodium 138.0 137.7 142.3 Potassium 3.7 3.7 3.8 Chloride 104 106 109 H Carbon Dioxide 24 22 24 Anion Gap 10 10 9 BUN 18 17 16 Creatinine 1.68 H 1.52 H 1.32 H Est GFR ( Amer) 53 L > 60 > 60 Est GFR (Non-Af Amer) 44 L 50 L 58 L Glucose 77 139 H 107 Calcium 8.6 9.2 9.3 Phosphorus 1.8 L 09/23/17 05:05 WBC 10.9 H RBC 3.64 L Hgb 12.1 L Hct 34.8 L MCV 96 MCH 33.2 MCHC 34.7 RDW 13.0 Plt Count 206 Seg Neutrophils % 70.0 Lymphocytes % 17.7 Monocytes % 8.6 Eosinophils % 3.4 Basophils % 0.3 Absolute Neutrophils 7.6 Absolute Lymphocytes 1.9 Absolute Monocytes 0.9 Absolute Eosinophils 0.4 Absolute Basophils 0.0 Sodium Potassium Chloride Carbon Dioxide Anion Gap BUN Creatinine Est GFR ( Amer) Est GFR (Non-Af Amer) Glucose Calcium Phosphorus Impressions: Chest X-Ray 09/22/17 11:07 IMPRESSION: NO SIGNIFICANT RADIOGRAPHIC FINDING IN THE CHEST. Head CT 09/22/17 11:09 IMPRESSION: NORMAL BRAIN CT WITHOUT CONTRAST. EVIDENCE OF ACUTE STROKE: NO. Assessment & Plan - Diagnosis (1) Encephalopathy acute Is this a current diagnosis for this admission?: Yes Plan: Improved and due to metabolic issues (2) [place] toxicity Qualifiers: Encounter type: initial encounter Is this a current diagnosis for this admission?: Yes Plan: Improving. Will continue hydrating and trending (3) Hyponatremia Is this a current diagnosis for this admission?: Yes Plan: Likely due to HCTZ. Resolved (4) Hypokalemia Is this a current diagnosis for this admission?: Yes Plan: Resolved (5) Chronic pain syndrome Is this a current diagnosis for this admission?: Yes Plan: Will hold off outpatient medicines and consider restarting in a.m. (6) Bipolar 1 disorder, depressed Is this a current diagnosis for this admission?: Yes Plan: So far stable. Patient made aware that he psychiatry will have to be vigilant when adjusting the lithium since needed to take into consideration other medications and is currently taking and may affect lithium level (7) Muscle twitch Is this a current diagnosis for this admission?: Yes Plan: Improving. Likely related to lithium but with continue Cogentin since he is also on Risperdal (8) Hypothyroidism Qualifiers: Hypothyroidism type: acquired Qualified Code(s): E03.9 - Hypothyroidism, unspecified Is this a current diagnosis for this admission?: Yes Plan: Start replacement with levothyroxine - Time Time Spent with patient: 15-24 minutes Medications reviewed and adjusted accordingly: Yes Anticipated discharge: Home Within: within 72 hours - Inpatient Certification Based on my medical assessment, after consideration of the patient's comorbidities, presenting symptoms, or acuity I expect that the services needed warrant INPATIENT care.: Yes I certify that my determination is in accordance with my understanding of Medicare's requirements for reasonable and necessary INPATIENT services [42 CFR 412.3e].: Yes Medical Necessity: Need Close Monitoring Due to Risk of Patient Decompensation, Need For IV Fluids
[2017-09-23] MEDS: PHOSPHORUS #1 250 MG TABLET PO SCH ×2 (11:34→16:34)
[2017-09-23] MEDS: DRONABINOL 2.5 MG CAPSULE PO SCH ×2 (12:45→16:34)
[2017-09-23] MEDS: TAMSULOSIN HCL 0.4 MG CAP.SR.24H PO SCH (17:43)
[2017-09-24] MEDS: NORMAL SALINE 1000 ML 1,000 ML IV PRN ×3 (03:59→17:59)
[2017-09-24] MEDS: HEPARIN SOD (PORCINE) 5,000 UNIT/ML 1 ML SYRINGE SUBCUT SCH ×3 (06:10→21:58)
[2017-09-24] MEDS: LANSOPRAZOLE 30 MG TAB.RAP.DR PO SCH (06:10)
[2017-09-24] MEDS: BUPROPION HCL 75 MG TABLET PO SCH ×3 (06:10→21:57)
[2017-09-24 07:00] LABS: ABSOLUTE BASOPHILS # (AUTO) 0.1 10^3/uL (0.0-0.2); ABSOLUTE EOSINOPHILS # (AUTO) 0.3 10^3/uL (0.0-0.6); ABSOLUTE LYMPHOCYTES (AUTO) 2.1 10^3/uL (0.5-4.7); ABSOLUTE MONOCYTES (AUTO) 0.9 10^3/uL (0.1-1.4); ABSOLUTE NEUT (AUTO) 7.9 10^3/uL (1.7-8.2); BASOPHILS % (AUTO) 0.5 % (0-2); HEMATOCRIT 34.3 % (37.9-51.0); HEMOGLOBIN 11.6 g/dL (13.5-17.0); LYMPHOCYTES % (AUTO) 18.2 % (13-45); MEAN CORPUSCULAR HGB CONC 33.9 g/dL (32.0-36.0); MEAN CORPUSCULAR VOLUME 97 fl (80-97); MONOCYTES % (AUTO) 8.1 % (3-13); PLATELET COUNT 189 10^3/uL (150-450); RED BLOOD COUNT 3.53 10^6/uL (4.35-5.55); RED CELL DISTRIBUTION WIDTH 12.6 % (11.5-14.0); SEGMENTED NEUTROPHILS % (AUTO) 70.2 % (42-78); TOTAL CELLS COUNTED % (AUTO) 100 %; WHITE BLOOD COUNT 11.3 10^3/uL (4.0-10.5)
[2017-09-24 07:27] LABS: ANION GAP 11 (5-19); BLOOD UREA NITROGEN 11 mg/dL (7-20); CALCIUM 9.7 mg/dL (8.4-10.2); CARBON DIOXIDE 22 mmol/L (22-30); CHLORIDE 111 mmol/L (98-107); GLUCOSE 117 mg/dL (75-110); LITHIUM 1.2 mEq/L (0.6-1.2); PHOSPHORUS 2.5 mg/dL (2.5-4.5); SODIUM 143.6 mmol/L (137-145)
[2017-09-24] MEDS: DRONABINOL 2.5 MG CAPSULE PO SCH ×2 (08:31→15:45)
[2017-09-24] MEDS: PHOSPHORUS #1 250 MG TABLET PO SCH ×2 (08:32→15:45)
[2017-09-24] MEDS ORDERED: (PENDING PHARMACY ID) (Risperidone [Risperdal] 2 MG) PO SCH (10:00)
[2017-09-24] MEDS ORDERED: (PENDING PHARMACY ID) (Topiramate [Topamax] 200 MG) PO SCH (10:00)
[2017-09-24] MEDS: GABAPENTIN 400 MG CAPSULE PO SCH ×2 (13:39→21:55)
--- NOTE | 2017-09-24 15:11 | PDOC PROGRESS REPORT ---
Subjective Progress Note for:: 09/24/17 Subjective:: Patient refers that he wants to go home. His accordingly have been asking him to go back home. Patient made aware that he would benefit to stay 1 more day. Patient insisted and was informed that would have to go AGAINST MEDICAL ADVICE. If pursuing this avenue he will be responsible for this hospitalization not his insurance. Nurse was informed and she followed up with patient and then he was willing to stay Review of systems All organ systems evaluated and negative except as in subjective All significant laboratories and diagnostics have been reviewed Reason For Visit: LITHIUM TOXICITY/HYPOKALEMIA Physical Exam Vital Signs: Temp Pulse Resp BP Pulse Ox 98.5 F 78 14 133/77 H 97 09/24/17 03:45 09/24/17 03:45 09/24/17 03:45 09/24/17 03:45 09/24/17 03:45 Intake & Output 09/23/17 09/24/17 09/25/17 06:59 06:59 06:59 Intake Total 2093 Output Total 2239 Balance -2239 2093 Weight 120.8 kg General appearance: ABSENT: morbidly obese Head exam: PRESENT: atraumatic, normocephalic Eye exam: PRESENT: conjunctiva pink, EOMI, PERRLA Ear exam: PRESENT: normal external ear exam Mouth exam: PRESENT: moist Neck exam: ABSENT: full ROM, JVD, tenderness Respiratory exam: PRESENT: clear to auscultation trupti Cardiovascular exam: PRESENT: RRR. ABSENT: diastolic murmur, systolic murmur Vascular exam: PRESENT: normal capillary refill Neurological exam: PRESENT: alert, awake, oriented to person, oriented to place , oriented to time, other - Very fine tremors noted to right upper extremity Psychiatric exam: PRESENT: anxious Results Impressions: Chest X-Ray 09/22/17 11:07 IMPRESSION: NO SIGNIFICANT RADIOGRAPHIC FINDING IN THE CHEST. Head CT 09/22/17 11:09 IMPRESSION: NORMAL BRAIN CT WITHOUT CONTRAST. EVIDENCE OF ACUTE STROKE: NO. Assessment & Plan - Diagnosis (1) Encephalopathy acute Is this a current diagnosis for this admission?: Yes Plan: Improved and due to metabolic issues. Restart Neurontin and Risperdal (2) [place] toxicity Qualifiers: Encounter type: initial encounter Is this a current diagnosis for this admission?: Yes Plan: Continue improving. Will continue hydrating and trending. (3) Hyponatremia Is this a current diagnosis for this admission?: Yes Plan: Likely due to HCTZ. Resolved (4) Hypokalemia Is this a current diagnosis for this admission?: Yes Plan: Resolved (5) Chronic pain syndrome Is this a current diagnosis for this admission?: Yes Plan: Restart gabapentin (6) Bipolar 1 disorder, depressed Is this a current diagnosis for this admission?: Yes Plan: So far stable. Patient made aware that he psychiatry will have to be vigilant when adjusting the lithium since needed to take into consideration other medications and is currently taking and may affect lithium level (7) Muscle twitch Is this a current diagnosis for this admission?: Yes Plan: Continues improving (8) Hypothyroidism Qualifiers: Hypothyroidism type: acquired Qualified Code(s): E03.9 - Hypothyroidism, unspecified Is this a current diagnosis for this admission?: Yes Plan: Continue levothyroxine - Time Time Spent with patient: 15-24 minutes Medications reviewed and adjusted accordingly: Yes Anticipated discharge: Home Within: within 24 hours - Inpatient Certification Based on my medical assessment, after consideration of the patient's comorbidities, presenting symptoms, or acuity I expect that the services needed warrant INPATIENT care.: Yes I certify that my determination is in accordance with my understanding of Medicare's requirements for reasonable and necessary INPATIENT services [42 CFR 412.3e].: Yes Medical Necessity: Need For IV Fluids, Need For Continuous Telemetry Monitoring
[2017-09-24] MEDS: TAMSULOSIN HCL 0.4 MG CAP.SR.24H PO SCH (17:59)
[2017-09-24] MEDS: RISPERIDONE 1 MG TAB.RAPDIS PO SCH (18:00)
--- NOTE | 2017-09-24 20:32 | PDOC CONSULTATION ---
Consultation Consult Date: 09/24/17 Consult reason:: lithum toxicity History of Present Illness Admission Date/PCP: 09/22/17 13:45 CHARLENE DENNY NP History of Present Illness: DEANA SHARP is a 47 year old male was brought to the Emergency Department after being found unconscious on garage floor by his daughter. Patient was not found with empty pill bottles or indications he had taken any medications. Patient and denied the patient had attempted to commit suicide. He doesn't remember anything that happened before he went down in his garage. Patient stated that he thinks that he took more medications than usual primarily lithium. His medications have been recently adjusted by his psychiatrist. He does admit to not staying well hydrated prior to this event. In the ER toxicology reports showed the patient has a [place] level of 2.8. Creatinine was elevated to 1.6. He has no prior history of kidney disease. He was given 3L of normal saline in the ED. Since being in the hospital he has been receiving IV fluid and his home medications, except for lithium. Past Medical History EENT Medical History: Reports: None Neurological Medical History: Reports: None Denies: Seizures Endocrine Medical History: Denies: Diabetes Mellitus Type 1, Diabetes Mellitus Type 2 Complications of Diabetes: Reports: None Renal/ Medical History: Reports: None Malignancy Medical History: Reports: None GI Medical History: Reports: Gastroesophageal Reflux Disease Musculoskeltal Medical History: Reports: Arthritis - on meds,burstis Skin Medical History: Reports: None Psychiatric Medical History: Reports: Bipolar Disorder, Depression, Post Traumatic Stress Disorder Traumatic Medical History: Reports: None Infectious Medical History: Reports: None Past Surgical History Past Surgical History: Reports: Orthopedic Surgery - Carpal tunnel Social History Smoking Status: Former Smoker Last Time Smoked: 6 months Frequency of Alcohol Use: None Hx Recreational Drug Use: Yes Drugs: Other Hx Prescription Drug Abuse: No - Advance Directive Resuscitation Status: Full Code Family History Parental Family History Reviewed: No Children Family History Reviewed: NA Sibling(s) Family History Reviewed.: NA Medication/Allergy Home Medications: Albuterol Sulfate [Ventolin Hfa] 2 puff IH Q6HP PRN 09/22/17 Alprazolam [Xanax] 2 mg PO BIDP PRN 09/22/17 Bupropion HCl [Wellbutrin Sr 150 mg Tablet] 150 mg PO TID 09/22/17 Cetirizine HCl [Zyrtec 10 mg Tablet] 10 mg PO DAILYP PRN 09/22/17 Cyclobenzaprine HCl [Flexeril 10 mg Tablet] 10 mg PO WSUPPER 09/22/17 Dextroamphetamine/Amphetamine [Adderall 30 mg Tablet] 30 mg PO WBRKFST 09/22/17 Dronabinol [Marinol] 10 mg PO BID 09/22/17 Fluticasone Propionate [Flonase Nasal [place] 50 Mcg/[place] 16 gm] 1 spray NASL QPMP PRN 09/22/17 Gabapentin [Neurontin] 1,200 mg PO TID 09/22/17 Ibuprofen [Motrin 800 mg Tablet] 800 mg PO Q6HP PRN 09/22/17 Lisinopril/Hydrochlorothiazide [Zestoretic 20-25 mg Tablet] 1 tab PO WSUPPER 06/29 [place] Carbonate 600 mg PO BID 09/22/17 Meloxicam [Mobic] 15 mg PO QAM 09/22/17 Pantoprazole Sodium [Protonix] 40 mg PO DAILY 09/22/17 Risperidone [Risperdal] 2 mg PO BID 09/22/17 Topiramate [Topamax] 200 mg PO BID 09/22/17 Triamcinolone Acetonide [Aristocort 0.1% Cream] 1 applic TP QPM 09/22/17 Allergies/Adverse Reactions: Animal Dander Allergy (Severe, Uncoded 08/16/16 07:59) Sinus problems, SOB Environmental Allergy (Severe, Uncoded 08/16/16 07:59) SOB, Sinus problems Review of Systems Constitutional: ABSENT: anorexia, chills, fatigue, fever(s), headache(s), weakness Eyes: ABSENT: visual disturbances Ears: ABSENT: hearing changes Nose, Mouth, and Throat: ABSENT: headache(s) Cardiovascular: ABSENT: chest pain, dyspnea on exertion, edema, orthropnea, palpitations Respiratory: ABSENT: cough, dyspnea, sputum Gastrointestinal: ABSENT: abdominal pain, constipation, diarrhea, nausea, vomiting Genitourinary: ABSENT: difficulty urinating, dysuria Musculoskeletal: ABSENT: muscle weakness Neurological: PRESENT: tremor(s). ABSENT: abnormal gait, abnormal movements, abnormal speech, dizziness, focal weakness, syncope, tingling, weakness Psychiatric: ABSENT: homidical ideation, suicidal ideation Physical Exam Vital Signs: Temp Pulse Resp BP Pulse Ox 98.7 F 78 20 119/73 100 09/24/17 16:00 09/24/17 16:00 09/24/17 16:00 09/24/17 16:00 09/24/17 16:00 Intake & Output 09/23/17 09/24/17 09/25/17 06:59 06:59 06:59 Intake Total 4 1318 Output Total 2240 Balance -22394 1318 Weight 120.8 kg General appearance: PRESENT: no acute distress, well-developed, well-nourished Eye exam: PRESENT: EOMI, PERRLA Neck exam: PRESENT: full ROM. ABSENT: JVD Respiratory exam: PRESENT: clear to auscultation trupti. ABSENT: accessory muscle use, rales, rhonchi, wheezes Cardiovascular exam: PRESENT: RRR, +S1, +S2 GI/Abdominal exam: PRESENT: soft. ABSENT: ascites, distended, tenderness Extremities exam: ABSENT: pedal edema, tenderness Musculoskeletal exam: PRESENT: normal inspection. ABSENT: tenderness Neurological exam: PRESENT: alert, awake, oriented to person, oriented to place , oriented to time, oriented to situation. ABSENT: motor sensory deficit Psychiatric exam: PRESENT: appropriate affect, normal mood. ABSENT: flat affect Skin exam: PRESENT: dry, intact, warm Results Laboratory Results: 09/24/17 06:29 09/24/17 06:29 09/24/17 09/24/17 06:29 06:29 WBC 11.3 H RBC 3.53 L Hgb 11.6 L Hct 34.3 L MCV 97 MCH 33.0 MCHC 33.9 RDW 12.6 Plt Count 189 Seg Neutrophils % 70.2 Lymphocytes % 18.2 Monocytes % 8.1 Eosinophils % 3.0 Basophils % 0.5 Absolute Neutrophils 7.9 Absolute Lymphocytes 2.1 Absolute Monocytes 0.9 Absolute Eosinophils 0.3 Absolute Basophils 0.1 Sodium 143.6 Potassium 4.0 Chloride 111 H Carbon Dioxide 22 Anion Gap 11 BUN 11 Creatinine 1.07 Est GFR ( Amer) > 60 Est GFR (Non-Af Amer) > 60 Glucose 117 H Calcium 9.7 Phosphorus 2.5 Impressions: Chest X-Ray 09/22/17 11:07 IMPRESSION: NO SIGNIFICANT RADIOGRAPHIC FINDING IN THE CHEST. Head CT 09/22/17 11:09 IMPRESSION: NORMAL BRAIN CT WITHOUT CONTRAST. EVIDENCE OF ACUTE STROKE: NO. Assessment & Plan - Diagnosis (1) [place] toxicity Qualifiers: Encounter type: initial encounter Is this a current diagnosis for this admission?: Yes Plan: toxicity looks to have resolved. At the time of incident lithium could have been elevated because of dehydration, other differential includes overdose. (2) MILLY (acute kidney injury) Plan: Due to dehydration with lithium toxicity further worsening the kidney function. Looks to be at baseline after rehydration with IV fluids. (3) Encephalopathy acute Is this a current diagnosis for this admission?: Yes Plan: resolved (4) Hypokalemia Is this a current diagnosis for this admission?: Yes Plan: currently stable
[2017-09-24] MEDS: BENZTROPINE MESYLATE 1 MG TABLET PO SCH (21:55)
[2017-09-24] MEDS: TOPIRAMATE 100 MG TABLET PO SCH (21:56)
[2017-09-24] MEDS: OXYCODONE-ACETAMINOPHEN 5-325 MG TABLET PO PRN (21:58)
[2017-09-25] MEDS: NORMAL SALINE 1000 ML 1,000 ML IV PRN ×2 (00:30→07:28)
[2017-09-25] MEDS: HEPARIN SOD (PORCINE) 5,000 UNIT/ML 1 ML SYRINGE SUBCUT SCH (05:58)
[2017-09-25] MEDS: GABAPENTIN 400 MG CAPSULE PO SCH (05:58)
[2017-09-25] MEDS: BUPROPION HCL 75 MG TABLET PO SCH (05:58)
[2017-09-25] MEDS: LANSOPRAZOLE 30 MG TAB.RAP.DR PO SCH (05:59)
[2017-09-25 06:53] LABS: ANION GAP 13 (5-19); BLOOD UREA NITROGEN 9 mg/dL (7-20); CALCIUM 9.6 mg/dL (8.4-10.2); CARBON DIOXIDE 20 mmol/L (22-30); CHLORIDE 111 mmol/L (98-107); GLUCOSE 91 mg/dL (75-110); LITHIUM 0.8 mEq/L (0.6-1.2); MAGNESIUM 1.8 mg/dL (1.6-2.3); PHOSPHORUS 3.2 mg/dL (2.5-4.5); POTASSIUM 3.9 mmol/L (3.6-5.0)
[2017-09-25] MEDS: DRONABINOL 2.5 MG CAPSULE PO SCH (08:40)
[2017-09-25] MEDS: PHOSPHORUS #1 250 MG TABLET PO SCH (08:40)
[2017-09-25] MEDS: TOPIRAMATE 100 MG TABLET PO SCH (09:55)
[2017-09-25] MEDS: RISPERIDONE 1 MG TAB.RAPDIS PO SCH (10:39)
[2017-09-25 11:48] VITALS: BP 120/71
--- NOTE | 2017-09-25 18:24 | PDOC DISCHARGE SUMMARY ---
General - Admit/Disc Date/PCP Admission Date/Primary Care Provider: 09/22/17 13:45 CHARLENE DENNY NP Discharge Date: 09/25/17 - Discharge Diagnosis (1) Encephalopathy acute Is this a current diagnosis for this admission?: Yes (2) [place] toxicity Is this a current diagnosis for this admission?: Yes (3) Hyponatremia Is this a current diagnosis for this admission?: Yes (4) Hypokalemia Is this a current diagnosis for this admission?: Yes (5) Chronic pain syndrome Is this a current diagnosis for this admission?: Yes (6) Bipolar 1 disorder, depressed Is this a current diagnosis for this admission?: Yes (7) Muscle twitch Is this a current diagnosis for this admission?: Yes (8) Hypothyroidism Is this a current diagnosis for this admission?: Yes (9) Hypophosphatemia Is this a current diagnosis for this admission?: Yes - Additional Information Resuscitation Status: Full Code Discharge Diet: Cardiac Discharge Activity: Activity As Tolerated Prescriptions: Hydralazine HCl 50 mg PO BID #60 tablet Home Medications: Albuterol Sulfate [Ventolin Hfa] 2 puff IH Q6HP PRN 09/22/17 Alprazolam [Xanax] 2 mg PO BIDP PRN 09/22/17 Bupropion HCl [Wellbutrin Sr 150 mg Tablet] 150 mg PO TID 09/22/17 Cetirizine HCl [Zyrtec 10 mg Tablet] 10 mg PO DAILYP PRN 09/22/17 Cyclobenzaprine HCl [Flexeril 10 mg Tablet] 10 mg PO WSUPPER 09/22/17 Dextroamphetamine/Amphetamine [Adderall 30 mg Tablet] 30 mg PO WBRKFST 09/22/17 Dronabinol [Marinol] 10 mg PO BID 09/22/17 Fluticasone Propionate [Flonase Nasal [place] 50 Mcg/[place] 16 gm] 1 spray NASL QPMP PRN 09/22/17 Gabapentin [Neurontin] 1,200 mg PO TID 09/22/17 Pantoprazole Sodium [Protonix] 40 mg PO DAILY 09/22/17 Risperidone [Risperdal] 2 mg PO BID 09/22/17 Topiramate [Topamax] 200 mg PO BID 09/22/17 Triamcinolone Acetonide [Aristocort 0.1% Cream] 1 applic TP QPM 09/22/17 Hydralazine HCl 50 mg PO BID #60 tablet 09/25/17 History of Present Illness History of Present Illness: DEANA SHARP is a 47 year old male was brought to the Emergency Department after being found unconscious on garage floor by his daughter. Patient was not found with empty pill bottles or indications he had taken any medications. Patient and denied the patient had attempted to commit suicide. Patient stated that he thinks that he took more medications than usual and primarily lithium. His medications have been recently adjusted by his psychiatrist. Also pain management had been trying to regulate gabapentin. complained of patient having some twitches which she thinks relate to his medications.Toxicology reports showed the patient has a [place] level of 2.8. Patient denied any additional stressors in his life or any additional depressive episodes. Patient's stated he may smoke marijuana occasionally but is not using anything else. Patient denied meth use or use of any drugs besides his prescriptions and marijuana. Patient reported he has memory issues sometimes. Patient's stated he receives ECT treatment at [facility]. Patient and reported he has multiple diagnoses to include PTSD, Schizophrenia and Bipolar Disorder. Patient takes Marinol, [place] , Risperidone, and Topamax for psychiatric disorders as well as medications for pain, high blood pressure, nerve pain and back pain. Due to elevated lithium and mental status changes the hospitalist service was contacted for further management. It is noteworthy to mention that while in emergency room care render included administration of 3 L of normal saline. Hospital Course Hospital Course: Patient was admitted under the hospitalist service to telemetry unit. Patient did not experience any cardiac dysrhythmias Patient was aggressively hydrated with further improvement of both acute kidney injury as well as lithium level. We held most of his outpatient medications. Of concern noted that patient was on meloxicam and ibuprofen as well as lisinopril /HCTZ. Patient has been advised as to not resume these medications. He has been advised as to abstain from taking any nonsteroidal medications. We transitioned him to have hydralazine for the management of his blood pressure. On the day of discharge BUN was 9 and creatinine was 1.0 lithium level was 0.8. All electrolyte abnormalities were repleted. Patient has been advised as to follow-up with a psychiatrist for further instructions as to when to start lithium as well as the dose. Both patient and has been strongly encouraged as to look into any medications newly prescribed if he continues being on lithium therapy. Patient was followed up both by nephrology service as well as poison control. Since patient had achieved maximum benefit of hospitalization stay prompted to discharge Physical Exam Vital Signs: Temp Pulse Resp BP Pulse Ox 98.6 F 89 20 128/83 H 100 09/25/17 07:27 09/25/17 07:27 09/25/17 07:27 09/25/17 07:27 09/25/17 07:27 Intake & Output 09/24/17 09/25/17 09/26/17 06:59 06:59 06:59 Intake Total 4 4918 Balance 4 4918 Weight 120.8 kg 121.2 kg General appearance: PRESENT: cooperative, morbidly obese Head exam: PRESENT: atraumatic, normocephalic Eye exam: PRESENT: conjunctiva pink, EOMI, PERRLA Ear exam: PRESENT: normal external ear exam Neck exam: PRESENT: full ROM. ABSENT: JVD, lymphadenopathy, tenderness Respiratory exam: PRESENT: clear to auscultation trupti Cardiovascular exam: PRESENT: RRR. ABSENT: diastolic murmur, systolic murmur Vascular exam: PRESENT: normal capillary refill GI/Abdominal exam: PRESENT: normal bowel sounds, soft. ABSENT: tenderness Extremities exam: PRESENT: full ROM. ABSENT: pedal edema Musculoskeletal exam: PRESENT: ambulatory Neurological exam: PRESENT: alert, awake, oriented to person, oriented to place , oriented to time, oriented to situation, CN II-XII grossly intact Psychiatric exam: PRESENT: appropriate affect, normal mood Skin exam: PRESENT: intact, normal color Results Laboratory Results: 09/24/17 06:29 09/25/17 05:56 09/25/17 05:56 Sodium 144.0 Potassium 3.9 Chloride 111 H Carbon Dioxide 20 L Anion Gap 13 BUN 9 Creatinine 1.02 Est GFR ( Amer) > 60 Est GFR (Non-Af Amer) > 60 Glucose 91 Calcium 9.6 Phosphorus 3.2 Magnesium 1.8 Impressions: Chest X-Ray 09/22/17 11:07 IMPRESSION: NO SIGNIFICANT RADIOGRAPHIC FINDING IN THE CHEST. Head CT 09/22/17 11:09 IMPRESSION: NORMAL BRAIN CT WITHOUT CONTRAST. EVIDENCE OF ACUTE STROKE: NO. Plan Discharge Plan: Discharge home Time Spent: Less than 30 Minutes
== END 2017-09-25 12:45 | disposition home or self-care (01) | DRG 917 ==
LOC: ER 10:47 → EH 13:45 → 3S 09-23 18:02
PROVIDERS: ADMIT Emergency Medicine; ATTEND Emergency Medicine
DX: T56.891A Toxic effect of other metals, accidental (unintentional), initial encounter (principal); G92 Toxic encephalopathy; N17.9 Acute kidney failure, unspecified; Z68.41 Body mass index [BMI] 40.0-44.9, adult; E87.1 Hypo-osmolality and hyponatremia; Y92.008 Other place in unspecified non-institutional (private) residence as the place of occurrence of the external cause; E86.0 Dehydration; E87.6 Hypokalemia; M19.90 Unspecified osteoarthritis, unspecified site; F31.9 Bipolar disorder, unspecified; F43.10 Post-traumatic stress disorder, unspecified; I10 Essential (primary) hypertension; F12.90 Cannabis use, unspecified, uncomplicated; F20.9 Schizophrenia, unspecified; M54.9 Dorsalgia, unspecified; M79.2 Neuralgia and neuritis, unspecified; E66.01 Morbid (severe) obesity due to excess calories; G89.4 Chronic pain syndrome; E03.9 Hypothyroidism, unspecified; E83.39 Other disorders of phosphorus metabolism; R25.3 Fasciculation; Z79.899 Other long term (current) drug therapy; Z87.891 Personal history of nicotine dependence
CPT/HCPCS: 36415; 70450; 71046; 80048; 80053; 80178; 80307; 81001; 83735; 84100; 84443; 84484; 85025; 85730; 93005; 93010; 96360; 99291; A9270-GY; G0480; J1644; J3480; J3490; J7030

== ENCOUNTER 2019-06-22 09:19 | Emergency (ER) | payer BC ==
[2019-06-22 11:26] LABS: APPEARANCE,URINE CLEAR; BILIRUBIN,URINE NEGATIVE (NEGATIVE); COLOR,URINE YELLOW; GLUCOSE, URINE NEGATIVE (NEGATIVE); KETONES,URINE NEGATIVE (NEGATIVE); LEUKOCYTE ESTERASE,URINE TRACE (NEGATIVE); NITRITE,URINE NEGATIVE (NEGATIVE); PROTEIN,URINE NEGATIVE (NEGATIVE); URINE SPECIFIC GRAVITY 1.019
--- NOTE | 2019-06-22 12:37 | ER Document Report ---
ED GI/ - General Chief Complaint: Groin Pain Stated Complaint: GROIN PAIN Time Seen by Provider: 06/22/19 11:31 Primary Care Provider: CHARLENE DENNY NP [Primary Care Provider] - Follow up in 3-5 days Notes: Patient is a 49-year-old male who presents the emergency department with a chief complaint of groin pain. Patient states that he started to feel his symptoms about 2 to 3 days ago. Patient states that it is more central and it radiates to both sides. Patient thought he was constipated and took a stool softener, but found out he was not constipated. Denies any nausea, vomiting, or diarrhea. He patient has a history of degenerative disc disease and is currently on pain management. TRAVEL OUTSIDE OF THE [place] IN LAST 30 DAYS: No - Related Data Allergies/Adverse Reactions: Animal Dander Allergy (Severe, Uncoded 08/16/16 07:59) Sinus problems, SOB Environmental Allergy (Severe, Uncoded 08/16/16 07:59) SOB, Sinus problems Home Medications: gabapentin 800mg, toiramate 200mg, tizadine 4mg cetirizine hcl 10mg, diclofenac sod ER 100mg, pantoprazole 40mg, lisinopril 20mg, risperidone 2mg, allopurinol 100mg, hydralazine 50mg, cyclobenzaprine 10mg, amlodipine 10mg, bupropion HCL 150mg, marinol 5mg, amphetamine, xanax 2mg, lidocaine patch, [place] Past Medical History - Social History Smoking Status: Former Smoker Chew tobacco use (# tins/day): No Frequency of alcohol use: None Drug Abuse: None Family History: Reviewed & Not Pertinent Patient has suicidal ideation: No Patient has homicidal ideation: No - Past Medical History Cardiac Medical History: Reports: Hx Hypertension - MEDICATED Neurological Medical History: Denies: Hx Cerebrovascular Accident, Hx Seizures Endocrine Medical History: Denies: Hx Diabetes Mellitus Type 1, Hx Diabetes Mellitus Type 2 Renal/ Medical History: Denies: Hx Peritoneal Dialysis GI Medical History: Reports: Hx Gastroesophageal Reflux Disease Musculoskeletal Medical History: Reports Hx Arthritis - on meds,burstis Psychiatric Medical History: Reports: Hx Bipolar Disorder, Hx Depression, Hx Post Traumatic Stress Disorder, Hx Schizophrenia Past Surgical History: Reports: Hx Orthopedic Surgery - Carpal tunnel - Immunizations Immunizations up to date: Yes Hx Diphtheria, Pertussis, Tetanus Vaccination: Yes Review of Systems - Review of Systems Notes: REVIEW OF SYSTEMS: CONSTITUTIONAL : Denies recent illness. Denies recent unintentional weight loss. Denies fever, chills, or sweats. EENT: Denies eye, ear, throat, or mouth pain, discharge, or symptoms. Denies nasal or sinus congestion. CARDIOVASCULAR: Denies chest pain. RESPIRATORY: Denies shortness of breath, cough, congestion, difficulty breathing, or wheezing. GASTROINTESTINAL: See HPI. GENITOURINARY: See HPI. MUSCULOSKELETAL: Denies neck and back pain. Denies joint pain or swelling. SKIN: Denies rash, itchiness, or lesions HEMATOLOGIC : Denies easy bruising or bleeding. LYMPHATIC: Denies swollen, painful, enlarged glands. NEUROLOGICAL: Denies no numbness or tingling denies weakness. Denies headache. Denies altered mental status. Denies alteration in speech. PSYCHIATRIC: Denies stress, anxiety, alteration in sleep patterns, or depression. All other systems reviewed and negative. Physical Exam - Vital signs Vitals: Pulse Resp BP Pulse Ox 104 H 18 138/75 H 98 06/22/19 09:23 06/22/19 09:23 06/22/19 09:23 06/22/19 09:23 - Notes Notes: PHYSICAL EXAMINATION: GENERAL: Appears well, healthy, well-nourished, no acute distress. HEAD: Normocephalic, atraumatic. EYES: PERRL, conjunctiva normal, all extraocular movements intact, sclera nonicteric ENT: Moist mucous membranes. NECK: Supple, no noticeable swelling, redness, rash. Normal range of motion. LUNGS: Equal breath sounds bilaterally and clear to auscultation. No wheezes rales or rhonchi. CARDIOVASCULAR: S1-S2, regular rate, regular rhythm. Radial pulses 2+, normal. ABDOMEN: Normoactive bowel sounds. Soft, nontender, no guarding, no rebound tenderness, and no masses palpated. EXTREMITIES: Normal strength and range of motion, no pitting or edema. No cyanosis. NEUROLOGICAL: Moves all extremities upon command. Strength 5/5 in all extremities. PSYCH: Normal mood, normal affect. SKIN: Warm, dry. No rash, lesions, ulcerations noted. Normal skin turgor. REPRODUCTIVE: No inguinal hernia noted on exam. Course - Re-evaluation Re-evalutation: 06/23/19 14:07 Patient's hematology shows a hemoglobin at 12.7 and hematocrit of 36.2, which shows mild anemia. He is CO2 is slightly low and all his other labs are unremarkable. Urinalysis shows trace leukocytes. His urine will be sent for culture. Awaiting CT of the abdomen and pelvis. Scrotal/testicular/hernia exam done with STEPHENIE Dubon at bedside. No hernia noted 06/22/19 16:[address] scan shows diverticulitis. He will be started on Augmentin. Patient will follow-up with his primary care provider. Follow-up precautions were given. Verbal discharge instructions were given to the patient. They verbalized understanding. They are stable for discharge. - Vital Signs Vital signs: Temp Pulse Resp BP Pulse Ox 98.0 F 86 18 120/70 95 06/22/19 16:42 06/22/19 16:42 06/22/19 16:42 06/22/19 16:42 06/22/19 16:42 - Laboratory Result Diagrams: 06/22/19 13:14 06/22/19 13:14 Laboratory results interpreted by me: 06/22/19 06/22/19 06/22/19 10:12 13:14 13:14 RBC 3.76 L Hgb 12.7 L Hct 36.2 L MCH 33.8 H Carbon Dioxide 20 L BUN 21 H Urine Urobilinogen 2.0 H Ur Leukocyte Esterase TRACE H Discharge - Discharge Clinical Impression: Diverticulitis Abdominal pain Qualifiers: Abdominal location: lower abdomen, unspecified Qualified Code(s): R10.30 - Lower abdominal pain, unspecified Condition: Stable Disposition: HOME, SELF-CARE Additional Instructions: Diverticulitis You have been diagnosed as having diverticulitis. This is an inflammation of a small pouch attached to the colon, called a diverticulum. Many of these small pouches can form on the colon as you get older. They are often caused by constipation. When inflamed or infected, symptoms arise -- usually abdominal pain, constipation or diarrhea, fever, and blood in the stool. Severe diverticulitis may require hospitalization. More mild cases are usually treated with antibiotics and clear liquid diet. As you improve, a diet low in residue (one which forms little stool) is prescribed. When you are better, you should eat a high-fiber diet. Stool softeners (like Metamucil) are usually recommended. Call the doctor or go to the hospital if there is increasing pain, vomiting, high fever, large amounts of blood passed, or if bowel movements cease. Prescriptions: Amox Tr/Potassium Clavulanate [Augmentin 875-125 Tablet] 1 tab PO BID 10 Days tablet Referrals: CHARLENE DENNY ACCOUNT MANAGEMENT ASSISTANT [Primary Care Provider] - Follow up in 3-5 days
[2019-06-22 13:46] LABS: ABSOLUTE EOSINOPHILS # (AUTO) 0.2 10^3/uL (0.0-0.6); ABSOLUTE LYMPHOCYTES (AUTO) 2.7 10^3/uL (0.5-4.7); ABSOLUTE MONOCYTES (AUTO) 0.7 10^3/uL (0.1-1.4); BASOPHILS % (AUTO) 0.5 % (0-2); EOSINOPHILS % (AUTO) 1.6 % (0-6); HEMATOCRIT 36.2 % (37.9-51.0); HEMOGLOBIN 12.7 g/dL (13.5-17.0); LYMPHOCYTES % (AUTO) 28.3 % (13-45); MEAN CORPUSCULAR HEMOGLOBIN 33.8 pg (27.0-33.4); MEAN CORPUSCULAR HGB CONC 35.1 g/dL (32.0-36.0); MEAN CORPUSCULAR VOLUME 96 fl (80-97); MONOCYTES % (AUTO) 7.5 % (3-13); PLATELET COUNT 232 10^3/uL (150-450); RED BLOOD COUNT 3.76 10^6/uL (4.35-5.55); RED CELL DISTRIBUTION WIDTH 13.5 % (11.5-14.0); SEGMENTED NEUTROPHILS % (AUTO) 62.1 % (42-78); TOTAL CELLS COUNTED % (AUTO) 100 %; WHITE BLOOD COUNT 9.6 10^3/uL (4.0-10.5)
[2019-06-22 13:53] LABS: ALBUMIN 3.8 g/dL (3.5-5.0); ALKALINE PHOSPHATASE 61 U/L (38-126); ANION GAP 13 (5-19); ASPARTATE AMINO TRANSFERASE 19 U/L (17-59); BILIRUBIN,DIRECT 0.2 mg/dL (0.0-0.4); BILIRUBIN,TOTAL 0.5 mg/dL (0.2-1.3); BLOOD UREA NITROGEN 21 mg/dL (7-20); CALCIUM 9.4 mg/dL (8.4-10.2); CARBON DIOXIDE 20 mmol/L (22-30); CHLORIDE 106 mmol/L (98-107); GLUCOSE 87 mg/dL (75-110); TOTAL PROTEIN 7.2 g/dL (6.3-8.2)
[2019-06-22] MEDS ORDERED: NORMAL SALINE 1000 ML 1,000 ML IV ONE (14:59)
--- NOTE | 2019-06-22 16:20 | RADIOLOGY REPORT (SQ) ---
EXAM DESCRIPTION: CT ABD/PELVIS WITH IV ONLY COMPLETED DATE/TIME: 06/22/2019 4:01 pm REASON FOR STUDY: eval hernia? COMPARISON: None. TECHNIQUE: CT scan of the abdomen and pelvis performed using helical scanning technique with dynamic intravenous contrast injection. No oral contrast. Images reviewed with lung, soft tissue, and bone windows. Reconstructed coronal and sagittal MPR images reviewed. Delayed images for evaluation of the urinary system also acquired. All images stored on PACS. All CT scanners at this facility use dose modulation, iterative reconstruction, and/or weight based d osing when appropriate to reduce radiation dose to as low as reasonably achievable (ALARA). [facility]: Dose Right [facility]: CareDose [facility]: Dose Right [facility]: Teradose 4D [facility]: Emerging Tigers CONTRAST TYPE AND DOSE: contrast/concentration: Isovue 350.00 mg/ml; Total Contrast Delivered: 100.0 ml; Total Saline Delivered: 72.0 ml RENAL FUNCTION: BUN 23 creatinine 1.23 RADIATION DOSE: CT Rad equipment meets quality standard of care and radiation dose reduction techniq ues were employed. CTDIvol: 18.2 - 20.1 mGy. DLP: 2170 mGy-cm.. LIMITATIONS: None. FINDINGS: LOWER CHEST: No significant findings. No nodules or infiltrates. LIVER: The liver is mildly hypoattenuating. No focal masses. SPLEEN: Splenomegaly. The spleen measures 16 cm. PANCREAS: No masses. No significant calcifications. No adjacent inflammation or peripancreatic fluid collections. Pancreatic duct not dilated. GALLBLADDER: No identified stones by CT criteria. No inflammatory changes to suggest cholecystitis. ADRENAL GLANDS: No significant masses or asymmetry. RIGHT KIDNEY AND URETER: No solid masses. Small nonobstructing lower calyceal calculus. No hydron ephrosis or hydroureter. LEFT KIDNEY AND URETER: No solid masses. No significant calcifications. No hydronephrosis or hydr oureter. AORTA AND VESSELS: No aneurysm. No dissection. Renal arteries, SMA, celiac without stenosis. RETROPERITONEUM: No retroperitoneal adenopathy, hemorrhage or masses. BOWEL AND PERITONEAL CAVITY: Mild descending and sigmoid diverticulosis. There is stranding in the f at around the upper sigmoid. There is no evidence of perforation. There is no evidence of abscess. See images 67 through 75 APPENDIX: Normal. PELVIS: No mass. No free fluid. Normal bladder. ABDOMINAL WALL: No masses. No hernias. BONES: No significant or acute findings. OTHER: No other significant finding. IMPRESSION: 1. Sigmoid diverticulitis with no evidence of perforation or abscess. 2. Hepatic steatosis. 3. Splenomegaly. TECHNICAL DOCUMENTATION: JOB ID: [id number] Quality ID # [id number]: Final reports with documentation of one or more dose reduction techniques (e.g., Au tomated exposure control, adjustment of the mA and/or kV according to patient size, use of iterative reconstruction technique) 2010 [employer]- All Rights Reserved Reading location - IP/workstation name: [email or web address]
[2019-06-22] MEDS ORDERED: AMOXICILLIN TRIHYD 250 MG CAPSULE PO ONE (16:40)
[2019-06-22] MEDS ORDERED: AMOXICILLIN TR/POT CLAVULANATE 500-125 MG TAB PO ONE (16:40)
[2019-06-22] MEDS ORDERED: METRONIDAZOLE 500 MG TABLET PO ONE (16:41)
[2019-06-22 16:53] VITALS: BP 120/70
== END 2019-06-22 17:17 | disposition home or self-care (01) ==
LOC: ER 09:19
DX: K57.32 Diverticulitis of large intestine without perforation or abscess without bleeding (principal); I10 Essential (primary) hypertension; D64.9 Anemia, unspecified; F20.9 Schizophrenia, unspecified; F31.9 Bipolar disorder, unspecified; K21.9 Gastro-esophageal reflux disease without esophagitis; Z79.899 Other long term (current) drug therapy; Z79.84 Long term (current) use of oral hypoglycemic drugs; Z87.891 Personal history of nicotine dependence; Z79.891 Long term (current) use of opiate analgesic
CPT/HCPCS: 36415; 85025; 80053; 81001; 74177; J3490; J7030; 96360; 96361; 99284

== ENCOUNTER 2020-06-14 07:52 | Day surgery (SDC) | payer BC ==
--- NOTE | 2020-06-10 10:54 | RADIOLOGY REPORT (SQ) ---
EXAM DESCRIPTION: CHEST PA/LATERAL IMAGES COMPLETED DATE/TIME: 06/10/2020 10:33 am REASON FOR STUDY: PREOP COMPARISON: 09/22/2017 EXAM PARAMETERS: NUMBER OF VIEWS: two views TECHNIQUE: Digital Frontal and Lateral radiographic views of the chest acquired. RADIATION DOSE: NA LIMITATIONS: none FINDINGS: LUNGS AND PLEURA: Small nodular opacity 8th in the left upper lobe most likely represents confluence of shadows including the anterior 1st rib. This is unchanged from 2018. No consolidation or effusions. No pneumothorax. MEDIASTINUM AND HILAR STRUCTURES: No masses or contour abnormalities. HEART AND VASCULAR STRUCTURES: Heart normal size. No evidence for failure. BONES: No acute findings. HARDWARE: None in the chest. OTHER: Metallic BB overlies the right scapula. IMPRESSION: NO SIGNIFICANT RADIOGRAPHIC FINDING IN THE CHEST. TECHNICAL DOCUMENTATION: JOB ID: [id number] 2010 [employer]- All Rights Reserved Reading location - IP/workstation name: [email or web address]
[2020-06-10 11:30] LABS: HEMATOCRIT 39.6 % (37.9-51.0); HEMOGLOBIN 13.8 g/dL (13.5-17.0); MEAN CORPUSCULAR HEMOGLOBIN 33.1 pg (27.0-33.4); MEAN CORPUSCULAR HGB CONC 34.8 g/dL (32.0-36.0); MEAN CORPUSCULAR VOLUME 95 fl (80-97); PLATELET COUNT 240 10^3/uL (150-450); RED BLOOD COUNT 4.16 10^6/uL (4.35-5.55); RED CELL DISTRIBUTION WIDTH 13.5 % (11.5-14.0); WHITE BLOOD COUNT 8.6 10^3/uL (4.0-10.5)
[2020-06-10 11:39] LABS: APPEARANCE,URINE CLEAR; BILIRUBIN,URINE NEGATIVE (NEGATIVE); COLOR,URINE YELLOW; GLUCOSE, URINE NEGATIVE (NEGATIVE); KETONES,URINE NEGATIVE (NEGATIVE); LEUKOCYTE ESTERASE,URINE NEGATIVE (NEGATIVE); NITRITE,URINE NEGATIVE (NEGATIVE); PROTEIN,URINE NEGATIVE (NEGATIVE); URINE SPECIFIC GRAVITY 1.019; UROBILINOGEN,URINE NEGATIVE mg/dL (<2.0)
[2020-06-10 11:50] LABS: ANION GAP 13 (5-19); BLOOD UREA NITROGEN 17 mg/dL (7-20); CALCIUM 9.5 mg/dL (8.4-10.2); CARBON DIOXIDE 22 mmol/L (22-30); CHLORIDE 106 mmol/L (98-107); GLUCOSE 89 mg/dL (75-110); POTASSIUM 4.1 mmol/L (3.6-5.0)
--- NOTE | 2020-06-10 12:42 | EKG REPORT ---
SEVERITY:- NORMAL ECG - SINUS RHYTHM : Confirmed by: Issa Pulliam MD 10-Jun-2020 12:41:02
[~2020-06-14 07:52] MED LIST: CEFAZOLIN 2 GM/D5W RTU 2 GM/50 ML RTUPB IV PRN; DEXAMETHASONE SOD PHOSPHATE INJ 4 MG/1 ML VIAL ONE; EPHEDRINE SULFATE INJ 50 MG/1 ML AMPULE ONE; FENTANYL CITRATE INJ/PF 100 MCG/2 ML AMPUL ONE; MIDAZOLAM 2 MG/2 ML INJ ONE; ONDANSETRON HCL INJ/PF 4 MG/2 ML SDV ONE; PROPOFOL INJ 200 MG/20 ML VIAL IV ONE; RINGERS SOLUTION,LACTATED 1,000 ML IV PRN
[2020-06-14] MEDS ORDERED: CEFAZOLIN 2 GM/D5W RTU 2 GM/50 ML RTUPB IV ONE (07:54)
[2020-06-14] MEDS ORDERED: MIDAZOLAM 2 MG/2 ML INJ ONE (08:41)
[2020-06-14] MEDS ORDERED: ROPIVACAINE HCL 0.5% INJ/PF (5 MG/1 ML) 30 ML SDV ONE (08:41)
[2020-06-14] MEDS ORDERED: FENTANYL CITRATE INJ/PF 100 MCG/2 ML AMPUL ONE (08:42)
[2020-06-14] MEDS ORDERED: EPINEPHRINE INJ/PF 1 MG/1 ML AMPULE ONE (10:34)
[2020-06-14] MEDS ORDERED: PROMETHAZINE HCL INJ 25 MG/1 ML VIAL IV PRN ×2 (12:03)
[2020-06-14] MEDS ORDERED: MEPERIDINE HCL/PF INJ 25 MG/1 ML DISP.SYRIN IV PRN (12:03)
[2020-06-14] MEDS ORDERED: MORPHINE SULFATE 10 MG/ML INJ IV PRN ×2 (12:03→14:27)
[2020-06-14] MEDS ORDERED: DIPHENHYDRAMINE HCL 50 MG/ML VIAL IV PRN (12:03)
[2020-06-14] MEDS ORDERED: FENTANYL CITRATE INJ/PF 100 MCG/2 ML AMPUL IV PRN ×3 (12:03)
[2020-06-14] MEDS ORDERED: ONDANSETRON HCL INJ/PF 4 MG/2 ML SDV IV PRN ×2 (12:03→14:27)
[2020-06-14] MEDS ORDERED: OXYCODONE-ACETAMINOPHEN 5-325 MG TABLET PO PRN (14:27)
[2020-06-14] MEDS ORDERED: SUCCINYLCHOLINE CHLORIDE INJ 200 MG/10 ML VIAL ONE (14:33)
--- NOTE | 2020-06-14 14:33 | Operative Report ---
Operative Report DATE OF SURGERY: 06/14/20 PREOPERATIVE DIAGNOSIS: Left shoulder full-thickness rotator cuff tear with pro ximal biceps tear, subacromial impingement POSTOPERATIVE DIAGNOSIS: Same OPERATION: Left shoulder rotator cuff repair, subacromial decompression, acro mioplasty, distal clavicle excision, subpectoralis biceps tenodesis SURGEON: SAI MELTON ANESTHESIA: GA COMPLICATIONS: None ESTIMATED BLOOD LOSS: Minimal PROCEDURE: Indication for above procedure: 50-year-old male with longstanding history of left shoulder discomfort. Patient had prior MRI 5 years ago demonstrating full-thickness rotator cuff tear however patient elected to avoid operative intervention at that point. Subsequently at most recent follow-up patient continued to have worsening pain and weakness repeat MRI was performed demonstrating persistent full-thickness rotator cuff tear. We discussed treatment option including operative versus nonoperative intervention after discussing risk benefits joint decision was made to proceed with operative treatment. Procedure In Detail: Patient was seen and evaluated in the preoperative holding area. The LEFT upper extremity was initialized and marked. Patient received 2g of Ancef IV for bacterial prophylaxis. Patient was taken back to the operative room where transferred to the operative table and placed under general anesthesia. Once they were adequately anesthetized patient placed in the beachchair position. Cervical spine was placed in neutral position all bony prominences were padded including nonoperative upper extremity and bilateral lower extremity. A surgical team debriefing was performed ensuring all instrumentation was available, the surgical procedure was discussed with possible concerns reviewed. The upper extremity was prepped with ChloraPrep draped in a sterile fashion. A timeout was done identifying correct patient, procedure and extremity everyone in attendance agree with this and verbalized no concerns. Posterior portal was established. Via triangulation anterior portal was established and a cannula was inserted. There was significant tearing of the biceps proximally and thus biceps tenotomy was performed to allow for later tenodesis. No evidence of glenohumeral degenerative changes. Subscapularis remained intact. There was evidence of full-thickness rotator cuff involving the supraspinatus and portions of the infraspinatus teres minor remained intact. Arthroscope was then introduced into the subacromial space. Via triangulation lateral portal was established. Subacromial decompression was performed. Coracoacromial ligament was then released but not excised. Anterior acromial spur was excised with arthroscopic bur. Via the anterior portal of the distal clavicle was identified. Then prepared 8 mm of the distal clavicle was excised with the arthroscopic bur. Inspection the rotator cuff confirmed a full- thickness rotator cuff tear then proceeded with rotator cuff repair. Greater tuberosity was then debrided down to cancellus bone to promote tendon to bone healing. A 18-gauge needle was then utilized to confirm appropriate placement of the anchors. One was placed posteriorly through a additional incision 1 placed anteriorly. The fiber tape suture was then placed posteriorly 2 additional horizontal mattress sutures were placed to the central aspect from the posterior and anterior ankle respectively and the final fiber tape suture was placed anteriorly. Each limb of the posterior and anterior fiber tape suture was cut leaving 4 limbs. 1 limb from each was then placed into an additional 4.75 swivel lock anchor. Lateral row was then established and and the 4.75 Arthrex swivel lock anchor was inserted. Additional anchor was placed anteriorly similarly with 1 fiber tape from the anterior 1 fiber tape from the posterior anchor. In order to provide further compression the previous for FiberWire sutures were then placed an additional 4.75 swivel lock anchor which was brought more proximally providing further compression of the rotator cuff to the greater tuberosity. Residual dogear was noted posteriorly thus an additional fiber tape suture was placed in a final 4.75 swivel lock anchor was implanted posteriorly bringing the rotator cuff firmly down to bone. Rotator cuff mobilized as you know there is no evidence of residual defect. Attention then turned to biceps tenodesis. Longitudinal skin incision was made along the inferior third of the pectoralis major. Blunt dissection was performed identifying the inferior border of the pectoralis major. Any peripheral vasculature was carefully coagulated. I then identified the tenotomized long head of the biceps which was retrieved and brought out the wound. The tendon was then secured 2 centimeters distal to the musculotendinous junction with a #2 fiber loop and the remaining diseased portion of the biceps was excised. The Arthrex biceps tenodesis button was then secured to my biceps tendon. Under direct visualization I then cleared an area along the anterior aspect of the humerus and drilled unicortically. The button was then placed into the unicortical hole and the biceps tendon was shuttled to the anterior cortex of the humerus. I then checked stability of the button confirming maximal fixation. Utilizing the free needle one limb of the remaining FiberWire was secured to the biceps providing further fixation. The elbow was then placed through range of motion to ensure appropriate tension of the biceps with flexion and extension. The wound was then copiously irrigated with normal saline. Any peripheral vasculature was carefully coagulated with Bovie cautery. Skin was closed a running subcuticular 3-0 Monocryl suture reinf orced with Dermabond and Steri-Strips. Portal holes were then reapproximated with interrupted 3-0 nylon suture. Wound was dressed Xeroform and a soft dressing. Patient was placed in a abduction sling. Sponge counts, instrument counts, needle counts were correct. Patient was then awoken from anesthesia. Transferred from the operating room table to the operating room stretcher. There was no intraoperative complications patient tolerated procedure well stable to PACU. Postop plan: Patient follow-up in the office in 2 weeks for recheck. We will review arthroscopic findings at that time. We will start physical therapy 6 weeks postoperatively as per rotator cuff repair protocol.
--- NOTE | 2020-06-14 15:26 | Discharge Summary ---
Discharge Summary (SDC) - Discharge Final Diagnosis: Left shoulder rotator cuff tear Date of Surgery: 06/14/20 Discharge Date: 06/14/20 Treatment or Instructions: Schedule Follow Up w/ Dr. Ángel Ackerman @ [facility] for Surgery to be seen in 10-14 days or as scheduled [place]: [place]: [place]: May remove dressing on postop day #3, keep incision covered and dry. Cryocuff to shoulder May begin pendulum exercises along w/ hand, wrist and elbow range of motion 4x per day or as tolerated. May remove sling for hygiene purposes otherwise continue it at all times. Stool softener of choice when on pain medication. USE OF [id number] IBUPROFEN: Ibuprofen (Advil, Nuprin, Medipren, Motrin IB) is a medication for fever and pain control. In addition, it has anti- inflammatory effects which may be beneficial, especially in the treatment of injuries. It's best to take ibuprofen with food. Persons with ulcer disease or allergy to aspirin should notify their physician of this before taking ibuprofen. Ibuprofen can be given every four to six hours, for a total of four doses daily. Age Pain or fever dose Antiinflammatory dose 6-8 yr 200 mg (1 tab) 200 mg (1 tab) 9-11 yr 200 mg (1 tab) 200-400 mg (1-2 tab) 11-14 yr 200-400 mg (1-2 tab) 400 mg (2 tab) 15-adult 400 mg (2 tab) 600 mg (3 tab) ORAL NARCOTIC MEDICATION: You have been given a prescription for pain control. This medication is a narcotic. It's best taken with food, as nausea can result if taken on an empty stomach. Don't operate machinery or drive within six hours of taking this medication. Do not combine this medicine with alcohol, or with any medication which can cause sedation (such as cold tablets or sleeping pills) unless you get permission from the physician. Narcotics tend to cause constipation. If possible, drink plenty of fluids and eat a diet high in fiber and fruits. Please be aware that prescription narcotics also have the potential for abuse. People become addicted to these medications because of the general sense of wellbeing that they induce. This feeling along with a significant reduction in tension, anxiety, and aggression provides a stimulating seductive quality to these drugs. Once your pain is under control, we encourage you to discard your unused narcotics. Referrals: CHARLENE DENNY NP [Primary Care Provider] - Discharge Diet: As Tolerated Respiratory Treatments at Home: Deep Breathing/Coughing, Incentive Spirometer Discharge Activity: No Lifting Over 10 Pounds, No Lifting/Push/Pulling Report the Following to Your Physician Immediately: Fever over 101 Degrees, Unusual Bleeding, Redness, Swelling, Warmth, Increased Soreness
[2020-06-14 18:58] VITALS: BP 125/78
== END 2020-06-14 16:15 | disposition home or self-care (01) ==
LOC: OROUT 07:52
PROVIDERS: ATTEND Orthopaedic Surgery
DX: M75.122 Complete rotator cuff tear or rupture of left shoulder, not specified as traumatic (principal); M25.812 Other specified joint disorders, left shoulder; M77.8 Other enthesopathies, not elsewhere classified; S46.122A Laceration of muscle, fascia and tendon of long head of biceps, left arm, initial encounter; X58.XXXA Exposure to other specified factors, initial encounter; Z03.818 Encounter for observation for suspected exposure to other biological agents ruled out; Z79.899 Other long term (current) drug therapy; K21.9 Gastro-esophageal reflux disease without esophagitis; M10.9 Gout, unspecified; I10 Essential (primary) hypertension; G89.29 Other chronic pain; M19.90 Unspecified osteoarthritis, unspecified site; Z87.891 Personal history of nicotine dependence; F32.9 Major depressive disorder, single episode, unspecified; E66.9 Obesity, unspecified; J45.909 Unspecified asthma, uncomplicated
CPT/HCPCS: 93005; 36415; 85027; 80048; 81001; 87070; 71046; 93010; 29827; 29826; 23430; U0003; J2795; J2250; J1100; J3490; J0171; J3010; J0330; J2405; J2704; J0690; C9803; 1630; 87635; C1713